=== PATIENT | female | born 1965 | race Caucasian/White ===

== ENCOUNTER 2021-10-09 11:37 | Inpatient (IN) | payer OTHER ==
[~2021-10-09] VITALS: Ht 170.2 cm; Wt 68.5 kg
[2021-10-09 12:42] LABS: BASOPHILS % 0.4 % (0.0-2.0); EOSINOPHILS % 0.1 % (0.0-5.0); LYMPHOCYTES % 15.8 % (20.0-50.0); MEAN CORPUSCULAR HEMOGLOBIN 26.9 pg (28.0-32.0); MEAN CORPUSCULAR VOLUME 82.6 fL (81.0-99.0); MEAN PLATELET VOLUME 7.8 fl (7.4-10.4); MONOCYTES % 4.8 % (2.0-8.0); NEUTROPHILS % 78.9 % (40.0-76.0); PLATELET 274 x1000/uL (130-400); RED BLOOD CELL COUNT 4.84 mill/uL (4.2-5.4); RED CELL DISTRIBUTION WIDTH 14.6 % (11.6-14.6)
[2021-10-09 12:51] LABS: CHLORIDE 108 mEq/L (98-107)
[2021-10-09 13:17] LABS: CLARITY URINE CLEAR (CLEAR); COLOR URINE YELLOW (YELLOW); KETONES URINE TRACE (NEGATIVE); LEUKOCYTE ESTERASE URINE NEGATIVE (NEGATIVE); NITRITE URINE NEGATIVE (NEGATIVE); OCCULT BLOOD URINE NEGATIVE (NEGATIVE); PROTEIN URINE NEGATIVE (NEGATIVE); SPECIFIC GRAVITY URINE 1.012 (1.005-1.030); UROBILINOGEN URINE 0.2 E.U./dL (0.2-1.0)
[2021-10-09] MEDS ORDERED: ENOXAPARIN 80MG/0.8ML SYR SUBCUT ONE (16:15)
[2021-10-09] MEDS ORDERED: ZOLPIDEM TARTRATE 5MG TABLET PO PRN (18:00)
[2021-10-09] MEDS ORDERED: TRAMADOL 50MG TABLET PO PRN (18:00)
[2021-10-09] MEDS ORDERED: NITROGLYCERIN 0.4MG TABLET SL SL PRN (18:00)
[2021-10-09] MEDS ORDERED: ONDANSETRON HCL 4MG/2ML INJ IV PRN (18:00)
[2021-10-09] MEDS ORDERED: MAGNESIUM/ALUMINUM HYDROXIDE/SIMETHICONE 30ML UDC PO PRN (18:00)
[2021-10-09] MEDS ORDERED: GUAIFENESIN 200MG/10ML SUGAR FREE UDC PO PRN (18:00)
[2021-10-09] MEDS ORDERED: CLONIDINE 0.1MG TABLET PO PRN (18:00)
[2021-10-09] MEDS ORDERED: ACETAMINOPHEN 325MG TABLET PO PRN ×2 (18:00)
[2021-10-09] MEDS ORDERED: DOCUSATE SODIUM 100MG CAPSULE PO PRN (18:00)
[2021-10-09] MEDS ORDERED: IPRATROPIUM/ALBUTEROL 0.5-3(2.5)MG/3ML NEB HHN PRN (18:00)
[2021-10-09] MEDS ORDERED: KETOROLAC 15MG/ML VIAL IV PRN (18:00)
[2021-10-09 19:37] LABS: ETHANOL BLOOD < 10 mg/dL; HDL CHOLESTEROL 68 mg/dL (40-59); LDL CHOLESTEROL 109 mg/dL (5-100); T4 FREE 1.17 ng/dL (0.76-1.46); TOTAL IRON BINDING CAPACITY 379 ug/dL (250-450)
[2021-10-09 19:58] LABS: FOLIC ACID (FOLATE) SERUM 14.1 ng/mL (>5.38)
[2021-10-09 21:03] VITALS: BP 131/74
[2021-10-09] MEDS ORDERED: ATOR10TA69 PO (21:03)
[2021-10-09] MEDS ORDERED: METO-396 PO (21:03)
[2021-10-09] MEDS ORDERED: LEVO100T PO (21:03)
[2021-10-09] MEDS: METOPROLOL TARTRATE 25MG TABLET PO SCH (21:43)
[2021-10-09] MEDS: FAMOTIDINE 20MG TABLET PO SCH (21:43)
[2021-10-09 21:56] LABS: D-DIMER < 0.19 mg/L FEU (<0.50); INR 1.1; PROTHROMBIN TIME 11.6 sec (9.6-11.0)
[2021-10-09 22:04] LABS: CREATINE KINASE MB FRACTION 4.9 ng/mL (0.5-3.6)
[2021-10-10] VITALS: BP 146/69
[2021-10-10 04:00] VITALS: BP 127/71
[2021-10-10] MEDS: ENOXAPARIN 80MG/0.8ML SYR SUBCUT SCH ×2 (05:57→17:00)
[2021-10-10 07:10] LABS: BASOPHILS % 0.9 % (0.0-2.0); EOSINOPHILS % 2.1 % (0.0-5.0); HEMATOCRIT. 40.1 % (36.0-48.0); HEMOGLOBIN. 13.2 g/dL (12.0-16.0); LYMPHOCYTES % 29.9 % (20.0-50.0); MEAN CORPUSCULAR HEMOGLOBIN 27.2 pg (28.0-32.0); MEAN PLATELET VOLUME 8.5 fl (7.4-10.4); MONOCYTES % 8.3 % (2.0-8.0); NEUTROPHILS % 58.8 % (40.0-76.0); PLATELET 280 x1000/uL (130-400); RED BLOOD CELL COUNT 4.84 mill/uL (4.2-5.4); RED CELL DISTRIBUTION WIDTH 14.5 % (11.6-14.6)
[2021-10-10 07:12] LABS: CHLORIDE 108 mEq/L (98-107)
[2021-10-10 07:39] LABS: CREATINE KINASE 131 IU/L (26-192); CREATINE KINASE MB FRACTION 4.5 ng/mL (0.5-3.6); PHOSPHORUS 2.8 mg/dL (2.5-4.9)
[2021-10-10 08:00] VITALS: BP 130/74
[2021-10-10] MEDS ORDERED: NALOXONE HCL 0.4MG/ML VIAL IV PRN (08:15)
[2021-10-10] MEDS: METOPROLOL TARTRATE 25MG TABLET PO SCH ×2 (08:17→22:00)
[2021-10-10] MEDS: FAMOTIDINE 20MG TABLET PO SCH ×2 (08:17→22:00)
[2021-10-10] MEDS ORDERED: ASPIRIN 325MG EC TABLET PO SCH (09:00)
[2021-10-10] MEDS ORDERED: ASPIRIN 81MG EC TABLET PO SCH (09:00)
[2021-10-10 09:53] LABS: *AMPHETAMINES SCREEN URINE NEGATIVE (NEGATIVE); *BARBITURATES SCREEN URINE NEGATIVE (NEGATIVE); *BENZODIAZEPINES SCREEN URINE NEGATIVE (NEGATIVE); *COCAINE SCREEN URINE NEGATIVE (NEGATIVE); CANNABINOID URINE SCREEN NEGATIVE (NEGATIVE); METHADONE URINE SCREEN NEGATIVE (NEGATIVE); OPIATES URINE SCREEN NEGATIVE (NEGATIVE); PHENCYCLIDINE URINE SCREEN NEGATIVE (NEGATIVE)
[2021-10-10 12:00] VITALS: BP 126/72
[2021-10-10] MEDS ORDERED: VERAPAMIL HCL 2.5 MG/1 ML 2ML VIAL IV ONE (13:25)
[2021-10-10] MEDS ORDERED: HEPARIN 1000 UNITS/ML 10ML ONE (13:26)
[2021-10-10] MEDS ORDERED: MIDAZOLAM HCL 2 MG/2 ML VIAL ONE (13:26)
[2021-10-10] MEDS ORDERED: DIPHENHYDRAMINE 50MG/ML VIAL ONE (13:26)
[2021-10-10] MEDS ORDERED: LIDOCAINE HCL/PF 2% 20MG/ML 5 ML/VIAL ONE (13:26)
[2021-10-10] MEDS ORDERED: FENTANYL CITRATE/PF 50MCG/ML 2ML VIAL ONE (13:26)
[2021-10-10] MEDS ORDERED: IODIXANOL 320MG/ML 100 ML BOTTLE IV ONE (13:27)
[2021-10-10] MEDS ORDERED: ATROPINE SULFATE 1MG/10ML SYR IV PRN (15:15)
[2021-10-10] MEDS ORDERED: SODIUM CHLORIDE 0.45% 750 ML IV SCH (15:15)
[2021-10-10 20:00] VITALS: BP 124/64
[2021-10-11] VITALS: BP 142/80
[2021-10-11 04:00] VITALS: BP 168/86
[2021-10-11] MEDS: ENOXAPARIN 80MG/0.8ML SYR SUBCUT SCH (05:08)
[2021-10-11 06:25] VITALS: BP 131/76
[2021-10-11 07:07] LABS: CHLORIDE 104 mEq/L (98-107)
[2021-10-11] MEDS ORDERED: LEVOTHYROXINE SODIUM 100MCG TABLET PO SCH (07:10)
[2021-10-11 07:41] VITALS: BP 130/77
[2021-10-11 07:46] LABS: BASOPHILS % 0.7 % (0.0-2.0); EOSINOPHILS % 3.2 % (0.0-5.0); HEMATOCRIT. 43.9 % (36.0-48.0); HEMOGLOBIN. 14.3 g/dL (12.0-16.0); LYMPHOCYTES % 24.8 % (20.0-50.0); MEAN CORPUSCULAR HEMOGLOBIN 27.2 pg (28.0-32.0); MEAN CORPUSCULAR VOLUME 83.3 fL (81.0-99.0); MEAN PLATELET VOLUME 8.4 fl (7.4-10.4); MONOCYTES % 6.3 % (2.0-8.0); PLATELET 309 x1000/uL (130-400); RED BLOOD CELL COUNT 5.26 mill/uL (4.2-5.4); RED CELL DISTRIBUTION WIDTH 14.8 % (11.6-14.6)
[2021-10-11] MEDS ORDERED: ATORVASTATIN CALCIUM 10MG TABLET PO SCH (21:00)
== END 2021-10-11 09:14 | disposition home or self-care (01) | DRG 281 ==
LOC: ER 11:37 → 8WST 16:40 → EDBEDREQTM 17:07 → EDBEDREQSVC 17:07 → EDBEDREQ 17:07 → EDBEDREQSVC 18:06 → ENRESERV 18:06 → CANRESERV 18:06 → ENRESERV 18:19 → SUPCPDRO 18:28
PROVIDERS: ADMIT Internal Medicine; ATTEND Internal Medicine
PROC: 4A023N7 Measurement of Cardiac Sampling and Pressure, Left Heart, Percutaneous Approach (ICD-10-PCS; principal; 2021-10-10)
PROC: B211YZZ Fluoroscopy of Multiple Coronary Arteries using Other Contrast (ICD-10-PCS; 2021-10-10)
DX: I21.9 Acute myocardial infarction, unspecified (principal); I47.1 Supraventricular tachycardia; I25.10 Atherosclerotic heart disease of native coronary artery without angina pectoris; Z20.822 Contact with and (suspected) exposure to COVID-19; E03.9 Hypothyroidism, unspecified; E78.00 Pure hypercholesterolemia, unspecified; I10 Essential (primary) hypertension; R00.1 Bradycardia, unspecified; R77.8 Other specified abnormalities of plasma proteins; Z79.82 Long term (current) use of aspirin; Z87.891 Personal history of nicotine dependence; Z72.89 Other problems related to lifestyle
CPT/HCPCS: 36415; 71045; 80048; 80053; 80061; 80305; 80320; 81003; 82550; 82553; 82607; 82746; 83036; 83540; 83550; 83605; 83735; 83880; 84100; 84439; 84443; 84484; 85025; 85379; 87426; 93005; 93306; 93458; 93970; 99285; C1769; C1887; C1893; J1200; J1644; J1650; J1885; J2250; J3010; J3490; Q9967; G0480

== ENCOUNTER 2023-12-24 09:57 | Emergency (ER) | payer OTHER ==
[~2023-12-24] VITALS: Ht 162.6 cm; Wt 73.0 kg
[~2023-12-24 09:57] MED LIST: ATOR10TA69 PO; LEVO100T PO; METO-396 PO
[2023-12-24 10:10] VITALS: TEMP 98.8; O2SAT 96
[2023-12-24 11:02] LABS: BASOPHILS % 0.7 % (0.0-2.0); EOSINOPHILS % 1.8 % (0.0-5.0); HEMATOCRIT. 40.7 % (36.0-48.0); LYMPHOCYTES % 27.7 % (20.0-50.0); MEAN CORPUSCULAR HGB CONC 32.1 g/dL (31.0-37.0); MEAN CORPUSCULAR VOLUME 84.2 fL (81.0-99.0); MEAN PLATELET VOLUME 8.3 fl (7.4-10.4); MONOCYTES % 6.7 % (2.0-8.0); NEUTROPHILS % 63.1 % (40.0-76.0); PLATELET 284 x1000/uL (130-400); RED BLOOD CELL COUNT 4.83 mill/uL (4.2-5.4); RED CELL DISTRIBUTION WIDTH 13.8 % (11.6-14.6); WHITE BLOOD COUNT 4.6 x1000/uL (4.5-11.0)
[2023-12-24 11:17] LABS: CARBON DIOXIDE 31 mEq/L (21-32); CHLORIDE 107 mEq/L (98-107); POTASSIUM 4.3 mEq/L (3.5-5.1); SODIUM 142 mEq/L (136-145)
[2023-12-24 11:18] LABS: CALCIUM 9.6 mg/dL (8.7-10.4)
[2023-12-24 11:23] LABS: CREATININE 0.8 mg/dL (0.6-1.0); GLUCOSE 94 mg/dL (70-105); UREA NITROGEN BLOOD 17 mg/dL (9-23)
[2023-12-24 11:25] LABS: TROPONIN I HIGH SENSITIVITY 8 ng/L (3.0-34)
[2023-12-24 11:49] VITALS: BP 144/95; PULSE 71; RESP 16; O2SAT 96
== END 2023-12-24 12:18 | disposition home or self-care (01) ==
LOC: ER 09:57
DX: R00.2 Palpitations (principal); R06.02 Shortness of breath; I10 Essential (primary) hypertension; E03.9 Hypothyroidism, unspecified
CPT/HCPCS: 36415; 71045; 80048; 83880; 84484; 85025; 93005; 99285